=== PATIENT | female | born 1980 ===

== ENCOUNTER 2017-11-06 09:30 | Outpatient (CLI) | payer OTHER | END 2017-11-06 09:31 | disposition home or self-care (01) | LOC: BICULT 09:30 | PROVIDERS: ATTEND Family Medicine | DX: B19.20 Unspecified viral hepatitis C without hepatic coma (principal); R93.2 Abnormal findings on diagnostic imaging of liver and biliary tract | CPT/HCPCS: 76700 ==

== ENCOUNTER 2017-12-23 09:10 | Outpatient (CLI) | payer OTHER ==
--- NOTE | 2017-12-23 11:58 | CT ---
CT OF THE ABDOMEN WITHOUT AND WITH CONTRAST: COMPARISON: Abdominal ultrasound of 11/06/17. HISTORY: Hepatitis C. The patient has a lesion in the liver which may represent a hemangioma. TECHNIQUE: Multiple contiguous axial images were obtained in a CT of the abdomen only without and with IV contra st. Coronal reformats were performed. FINDINGS: There is a 5.5 cm lesion in the right lobe of the liver. After the administration of contrast, this lesion demonstrates peripheral puddling and centripetal fill-in and is consistent with a hemangioma. There is also a smaller lesion in the right lobe of the liver measuring approximately 8 mm in size. This may have a small amount of peripheral enhancement and could represent a small hemangioma versus a cyst. No biliary dilatation is seen. The gallbladder, kidneys, adrenal glands, spleen, and pancreas are un remarkable. The visualized large and small bowel are unremarkable. No abdominal adenopathy is seen. The osseous structures, visualized inferior thorax, and abdominal wall soft tissues are unremarkable. IMPRESSION: 1. The larger lesion in the right lobe of the liver is consistent with a hemangioma. 2. There is a small lesion in the right lobe of the liver which could represent a small hemangioma o r a cyst. POS: YOU
== END 2017-12-23 09:11 | disposition home or self-care (01) ==
LOC: CT 09:10
PROVIDERS: ATTEND Family Medicine
DX: B19.20 Unspecified viral hepatitis C without hepatic coma (principal); K76.89 Other specified diseases of liver
CPT/HCPCS: 74170